=== PATIENT | female | born 1965 | race Caucasian/White ===

== ENCOUNTER 2024-06-27 20:00 | Emergency (ER) | payer SELFPAY ==
[2024-06-27 20:03] VITALS: BP 166/82
--- NOTE | 2024-06-27 22:11 | ED.GENMED ---
History of Present Illness
General
Chief Complaint: Crisis Evaluation
Source: patient
Exam Limitations: none
Time Seen by Provider: 06/27/24 20:37
Nursing documentation reviewed up to this point in time: agreed with
History of Present Illness
History of Present Illness:
59-year-old female presents for medical clearance for psychiatric evaluation she is felt depressed and suicidal her plan will be to cut her wrist she had a few beers earlier today family encouraged her to command, she feels depressed due to the
of her child in 1988 in infancy, tells me she never been hospitalized for this, not on meds or therapy for depression she is amenable to hospitalization for psychiatric evaluation this evening
Phy Exam
Physical Exam
Physical Exam:
Physical Exam
General: no apparent distress, not acutely ill
Neck: No jaundice
Heart: s1/s2 regular rate and rhythm, no murmur. equal radial pulses.
Lungs: no acute respiratory distress. No wheezing
Abdomen: Nontender
Neuro: alert and oriented. no focal neurological deficits
Skin: no rash
Psychiatric: Disheveled cooperative admits to depression and suicidality hallucinate
Extremities: no edema.
Course
Orders/Labs/Results
Orders:
Orders
06/27/24 20:59
Crisis Consult Urgent
Reason for Consult: thought of slitting her wrists
1:1 Observation - Suicide/ Violent Behavior As Directed
06/27/24 21:05
Acetaminophen Urgent
Comment: AD ON
Alcohol Urgent
Basic Metabolic Panel Urgent
Complete Blood Count/With Diff Urgent
Salicylate Urgent
06/27/24 21:12
Urine Drug Abuse Screen Urgent
Date Specimen was Collected: 06/27/24
Time Specimen was Collected: 20:17
06/27/24 22:24
Add On- LAB Urgent
Tests Added?: Salicylate, acetaminophen
Abnormal Lab Results
06/27/24
21:05
RBC 3.85 L 10^6/uL
(4.20-5.40)
Hct 34.4 L %
(37.0-47.0)
MCH 31.4 H pg
(27.0-31.0)
Potassium 3.4 L mmol/L
(3.5-5.1)
Salicylates < 1.0 L mg/dl
(2.0-20.0)
Acetaminophen < 10 L ug/ml
(10-30)
06/27/24 21:05
06/27/24 21:05
Vital Signs
Initial and Last Documented VS:
Initial Vital Signs
Temp Pulse Resp BP Pulse Ox
99.2 F 84 22 166/82 100
06/27/24 20:03 06/27/24 20:03 06/27/24 20:03 06/27/24 20:03 06/27/24 20:03
Last Documented Vital Signs
Temp Pulse Resp BP Pulse Ox
99.2 F 84 22 166/82 100
06/27/24 20:03 06/27/24 20:03 06/27/24 20:03 06/27/24 20:03 06/27/24 20:03
MDM/Problems Addressed
Differential Diagnosis Includes:
Depression suicidal alcohol intoxication
MDM/Problems Addressed:
Depression
Chronic conditions affecting care: Psychiatric illness
Acute Exacerbation and/or Progression of Chronic Illness: Psychiatric illness
*Critical Care Note
Total Time (30-74mins, 75-104mins- exclusive of procedures): Not Applicable
Update Note
Update Note:
Update labs are noted patient medically clear for psychiatric evaluation
ED Attending Note
-
Portions of this chart may have been created with voice recognition software.� Occasional wrong word or��sound alike� substitutions may have occurred due to the inherent limitations of voice recognition software.
Discharge Plan
Departure
Patient Disposition: [facility]
Date of Disposition: 06/27/24
Time of Disposition: 23:38
Patient with high blood pressure during this ER visit?: No
Condition: Good
Discharge Problem:
Suicidal ideation
Referrals:
UNKNOWN - PT DOES,NOT KNOW [Family Provider] -
Interventions
Interventions:
*Risk Screen - Suicide Last Done: 06/27/24 20:55
*General Assessment Last Done: 06/27/24 20:55
*Neglect/Abuse Screening Last Done: 06/27/24 20:55
ED- Fall Risk Assessment Last Done: 06/27/24 20:55
*ED COVID-19 Vaccine History Last Done: 06/27/24 20:55
ED-Psychological Assessment Last Done: 06/27/24 20:55
Discharge Date and Time
Print Language: URDU
[2024-06-27 23:03] LABS: % Basophils 0.4 % (0-2); % Eosinophils 1.2 % (0-6); % Immature Granulocytes 0.4 % (0-0.5); % Lymphocytes 40.6 % (20.5-51.1); % Neutrophils 48.4 % (42.2-75.2); Absolute Eosinophils 0.1 10^3/uL (0-0.7); Absolute Monocytes 0.5 10^3/uL (0.1-0.6); Absolute Neutrophils 2.4 10^3/uL (1.4-6.5); Hematocrit 34.4 % (37.0-47.0); Hemoglobin 12.1 g/dL (12.0-16.0); Mean Corp Hgb Conc. 35.2 g/dL (33.0-37.0); Mean Corpuscular Hgb 31.4 pg (27.0-31.0); Mean Corpuscular Volume 89.4 fL (81.0-99.0); Mean Platelet Volume 9.3 fL (7.4-10.4); Nucleated Red Blood Cells % 0 %; Platelet Count 200 10^3/uL (130-400); Red Blood Cell Count 3.85 10^6/uL (4.20-5.40); Red Cell Dist. Width 13.2 % (11.5-14.5)
[2024-06-27 23:16] LABS: Amphetamines Negative (Negative); Barbiturates Negative (Negative); Benzodiazepines Negative (Negative); Buprenorphine Negative (Negative); Cocaine Negative (Negative); Marijuana Negative (Negative); Methadone Negative (Negative); Methamphetamines Negative (Negative); Opiates Negative (Negative); Phencyclidine Negative (Negative); Tricyclic Antidepressants Negative (Negative)
[2024-06-27 23:25] LABS: Acetaminophen < 10 ug/ml (10-30); Alcohol 148 mg/dl; Calcium 9.5 mg/dl (8.4-10.2); Carbon Dioxide 22 mmol/L (22-30); Glucose 94 mg/dl (70-99); Potassium 3.4 mmol/L (3.5-5.1); Salicylate < 1.0 mg/dl (2.0-20.0); eGFR > 60.00
[2024-06-27 23:35] LABS: Blood Urea Nitrogen 9 mg/dl (7-17); Chloride 102 mmol/L (98-107); Sodium 137 mmol/L (135-145)
== END 2024-06-27 23:46 ==
LOC: EMR 20:00
PROVIDERS: EMERGENCY PHYSICIAN Emergency Medicine
DX: R45.851 Suicidal ideations (principal); F32.A Depression, unspecified
CPT/HCPCS: 99285; 80048; 80143; 80179; 80306; 82077; 85025